=== PATIENT | female | born 1955 | race Two or more races ===

== ENCOUNTER 2023-07-07 19:39 | Emergency (ER) | payer OTHER ==
[~2023-07-07] VITALS: Ht 147.3 cm; Wt 55.3 kg
[2023-07-07] MEDS ORDERED: NORVASC10 MG PO (20:22)
[2023-07-07] MEDS ORDERED: HYDRODIURIL12.5 MG PO (20:23)
[2023-07-07] MEDS ORDERED: PREVACID30 M1 (20:23)
[2023-07-07] MEDS ORDERED: ALLEGRA ALLERGY60 MG (20:24)
== END 2023-07-07 22:35 | disposition home or self-care (01) ==
LOC: ER 19:39
DX: L50.8 Other urticaria (principal)
CPT/HCPCS: 96365; 99283; J1200; J2930; J3490